=== PATIENT | female | born 1965 | race African-American/Black ===

== ENCOUNTER 2019-07-14 10:45 | Inpatient (IN) | payer MEDICAID ==
[~2019-07-14] VITALS: Ht 165.1 cm; Wt 80.3 kg
[2019-07-14] MEDS ORDERED: SODIUM CHLORIDE 0.9% 1,000 ML IV ONE (11:56)
[2019-07-14] MEDS ORDERED: ACETAMINOPHEN 325MG TABLET PO STA (11:56)
[2019-07-14 11:59] LABS: BASOPHILS % 0.9 % (0.0-2.0); EOSINOPHILS % 1.4 % (0.0-5.0); HEMATOCRIT. 40.9 % (36.0-48.0); HEMOGLOBIN. 13.7 g/dL (12.0-16.0); LYMPHOCYTES % 35.8 % (20.0-50.0); MEAN CORPUSCULAR HEMOGLOBIN 26.6 pg (28.0-32.0); MEAN CORPUSCULAR VOLUME 79.1 fL (81.0-99.0); MEAN PLATELET VOLUME 8.2 fl (7.4-10.4); MONOCYTES % 8.4 % (2.0-8.0); NEUTROPHILS % 53.5 % (40.0-76.0); PLATELET 263 x1000/uL (130-400); RED BLOOD CELL COUNT 5.17 mill/uL (4.2-5.4); RED CELL DISTRIBUTION WIDTH 14.9 % (11.6-14.6)
[2019-07-14 12:05] LABS: CHLORIDE 110 mEq/L (98-107); PROTHROMBIN TIME 9.8 sec (9.6-11.0)
[2019-07-14 12:09] LABS: ETHANOL BLOOD < 10 mg/dL
[2019-07-14 12:12] LABS: LDL CHOLESTEROL 124 mg/dL (5-100)
[2019-07-14] MEDS ORDERED: ASPIRIN 325MG EC TABLET PO ONE (12:15)
[2019-07-14 12:20] LABS: CLARITY URINE CLEAR (CLEAR); COLOR URINE YELLOW (YELLOW); KETONES URINE NEGATIVE (NEGATIVE); LEUKOCYTE ESTERASE URINE NEGATIVE (NEGATIVE); NITRITE URINE NEGATIVE (NEGATIVE); OCCULT BLOOD URINE NEGATIVE (NEGATIVE); PH URINE 7.5 (4.5-8.0); PROTEIN URINE NEGATIVE (NEGATIVE); SPECIFIC GRAVITY URINE 1.006 (1.005-1.030); UROBILINOGEN URINE 0.2 E.U./dL (0.2-1.0)
[2019-07-14 12:29] LABS: *AMPHETAMINES SCREEN URINE NEGATIVE (NEGATIVE); CANNABINOID URINE SCREEN NEGATIVE (NEGATIVE); PHENCYCLIDINE URINE SCREEN NEGATIVE (NEGATIVE)
[2019-07-14 12:30] LABS: *BARBITURATES SCREEN URINE NEGATIVE (NEGATIVE); *BENZODIAZEPINES SCREEN URINE NEGATIVE (NEGATIVE); *COCAINE SCREEN URINE NEGATIVE (NEGATIVE); METHADONE URINE SCREEN NEGATIVE (NEGATIVE); OPIATES URINE SCREEN NEGATIVE (NEGATIVE)
[2019-07-14 14:18] VITALS: BP 125/78
[2019-07-14 16:00] VITALS: BP 121/81
[2019-07-14] MEDS ORDERED: LATA2.5D2 EACHEYE (16:35)
[2019-07-14] MEDS ORDERED: METH10TA7 PO (16:37)
[2019-07-14] MEDS ORDERED: DIPHENHYDRAMINE 50MG/ML VIAL IV PRN (16:45)
[2019-07-14] MEDS ORDERED: MAGNESIUM/ALUMINUM HYDROXIDE/SIMETHICONE 30ML UDC PO PRN (16:45)
[2019-07-14] MEDS ORDERED: ONDANSETRON HCL 4MG/2ML INJ IV PRN (16:45)
[2019-07-14] MEDS ORDERED: ACETAMINOPHEN 325MG TABLET PO PRN (16:45)
[2019-07-14] MEDS ORDERED: PNEUMOCOCCAL 23-VAL P-SAC VAC 0.5 ML IM ONE (17:00)
[2019-07-14 20:00] VITALS: BP 103/64
[2019-07-14] MEDS: METHIMAZOLE 10MG TABLET PO SCH (20:34)
[2019-07-14] MEDS ORDERED: LATANOPROST 0.005% OPHTH DROPS 2.5ML EACHEYE SCH (21:00)
[2019-07-14] MEDS ORDERED: ENOXAPARIN 40MG/0.4ML SYR SUBCUT SCH (21:00)
[2019-07-14] MEDS ORDERED: LATANOPROST 0.005% OPHTH DROPS 2.5ML BOTHEYE SCH (21:00)
[2019-07-14] MEDS: SODIUM CHLORIDE 0.9% INJ 3ML FLUSH IVF SCH (21:34)
[2019-07-15] VITALS: BP 104/63
[2019-07-15 04:00] VITALS: BP 99/66
[2019-07-15] MEDS: SODIUM CHLORIDE 0.9% INJ 3ML FLUSH IVF SCH (05:18)
[2019-07-15] MEDS: METHIMAZOLE 10MG TABLET PO SCH (08:19)
[2019-07-15] MEDS ORDERED: METHIMAZOLE 5MG TABLET PO SCH (09:00)
== END 2019-07-15 10:16 | disposition left against medical advice (07) | DRG 45 ==
LOC: ER 10:45 → 7WST 12:28 → EDBEDREQSVC 12:33 → EDBEDREQ 12:33 → EDBEDREQTM 12:33 → ENRESERV 12:42
PROVIDERS: ADMIT Internal Medicine; ATTEND Internal Medicine
DX: I63.9 Cerebral infarction, unspecified (principal); E03.9 Hypothyroidism, unspecified; Z53.29 Procedure and treatment not carried out because of patient's decision for other reasons; E05.00 Thyrotoxicosis with diffuse goiter without thyrotoxic crisis or storm; Z89.512 Acquired absence of left leg below knee; Z90.710 Acquired absence of both cervix and uterus; Z82.49 Family history of ischemic heart disease and other diseases of the circulatory system; Z83.49 Family history of other endocrine, nutritional and metabolic diseases
CPT/HCPCS: 36415; 71045; 80305; 80320; 81003; 82962; 83721; 83880; 84443; 84484; 93005; 93306; 96360; 99291; J1200; J1650; J7030; G0480